=== PATIENT | male | born 1945 | race Caucasian/White ===

== ENCOUNTER 2020-04-27 12:02 | Outpatient (CLI) | payer OTHER, SELFPAY ==
[2020-04-27 12:51] LABS: Alanine Aminotransferase 34 U/L (4-50); Aspartate Amino Transferase 38 U/L (17-59)
== END 2020-04-27 12:03 | disposition home or self-care (01) ==
PROVIDERS: PCP Internal Medicine; Visit Provider Podiatrist Foot & Ankle Surgery
DX: B35.1 Tinea unguium (principal)
CPT/HCPCS: 36415; 84450; 84460

== ENCOUNTER 2020-07-26 09:04 | Outpatient (CLI) | payer OTHER, SELFPAY ==
[2020-07-26 09:34] LABS: Alanine Aminotransferase 23 U/L (4-50); Aspartate Amino Transferase 26 U/L (17-59)
== END 2020-07-26 09:05 | disposition home or self-care (01) ==
PROVIDERS: PCP Internal Medicine; Visit Provider Podiatrist Foot & Ankle Surgery
DX: B35.1 Tinea unguium (principal)
CPT/HCPCS: 36415; 84450; 84460

== ENCOUNTER 2020-10-09 09:23 | Outpatient (CLI) | payer OTHER, SELFPAY ==
--- NOTE | ~2020-10-09 | MR_ITS ---
EXAMINATION: MR lumbar spine wo/w con EXAM DATE: 10/09/2020 11:27 INDICATION: Lumbar radiculopathy. TECHNIQUE: Multi-sequential, multiplanar MR images of the lumbar spine were obtained without contrast . Sagittal T1, T2, T2 fat saturation images. Axial T2 weighted images. Axial T1 weighted sequence. Patient was then injected with 20 mL Multihance intravenous contrast and reimaged. Postcontrast axi al and sagittal T1-weighted fat saturation sequences were obtained. FINDINGS: Interbody and posterior fusion L3-4. There are some solid bone bridging at this level. Ther e is moderate to severe disc disease L4-5 and L5-S1. There is 2 mm retrolisthesis L1 on L2, 2 mm ante rolisthesis L2 on L3, 2 mm retrolisthesis L4 on L5. Endplate degenerative signal change at L4-5 and L 5-S1. There is L1 hemangioma. The conus medullaris terminates at the T12-L1 level and has normal sign al intensity and morphology. Paraspinal soft tissue is unremarkable. There are no areas of abnormal enhancement on the post contrast images. Level by level evaluation: T12-L1: Disc does not extend beyond the endplate margin. Facet arthropathy: Mild to moderate. Neural foraminal stenosis: No stenosis. Central canal stenosis: No stenosis. L1-L2: There is a moderate diffuse disc bulge. Facet arthropathy: Moderate to severe . Ligamentum flavum enlargement. Neural foraminal stenosis: Moderate bilateral. Central canal stenosis: Mild to moderate. L2-L3: There is a moderate diffuse disc bulge. Facet arthropathy: Severe . Ligamentum flavum enlargement. Neural foraminal stenosis: Mild bilateral. Central canal stenosis: Moderate. L3-L4: This level is fused. Facet arthropathy: Fused. Neural foraminal stenosis: Mild bilateral. Central canal stenosis: Posterior decompression. L4-L5: There is a moderate diffuse disc bulge. Facet arthropathy: Moderate to severe. Neural foraminal stenosis: Moderate left, mild to moderate right. Central canal stenosis: Mild to moderate. L5-S1: There is a moderate diffuse disc bulge. Facet arthropathy: Mild to moderate right, mild left. Neural foraminal stenosis: Mild to moderate bilateral. Central canal stenosis: Mild. IMPRESSION: Moderate to severe lumbar spondylosis. Central canal most narrowed at L2-3. No acute find ings. Reviewed, dictated and finalized at location A. IMPRESSION: Moderate to severe lumbar spondylosis. Central canal most narrowed at L2-3. No acute findings.
== END 2020-10-09 09:24 | disposition home or self-care (01) ==
PROVIDERS: PCP Internal Medicine; Visit Provider Nurse Practitioner Family
DX: M54.5 Low back pain (principal); M47.816 Spondylosis without myelopathy or radiculopathy, lumbar region
CPT/HCPCS: 72158; A9577

== ENCOUNTER 2020-12-27 09:46 | Emergency (ER) | payer OTHER, SELFPAY ==
--- NOTE | ~2020-12-27 | XR_ITS ---
XR ankle LT min 3V DATE: 12/27/2020 11:29 INDICATION: Erythema of left ankle TECHNIQUE: 4 views COMPARISON: None FINDINGS: There is mild lateral soft tissue swelling. There is mild plantar and prominent posterior c alcaneal enthesopathy. No fracture or dislocation of the ankle or disruption of the ankle mortise. No periosteal reaction or bone destruction is detected. IMPRESSION: Mild lateral soft tissue swelling. Calcaneal enthesopathy Reviewed, dictated and finalized at location B.
[2020-12-27 09:47] VITALS: BP 144/82; PULSE 77; RESP 16; TEMP 36.3; O2SAT 99
[2020-12-27 10:59] VITALS: BP 129/70; PULSE 64; RESP 16; O2SAT 99
--- NOTE | 2020-12-27 11:43 | ED.SKABFB ---
HPI - Skin/Abscess/Foreign Bdy General Chief complaint: Skin/Abscess/Foreign Body Stated complaint: cellulitis on leg Time Seen by Provider: 12/27/20 11:02 Source: patient Mode of arrival: ambulatory Limitations: no limitations History of Present Illness HPI narrative: This is a 75-year-old male that presents to the emergency department for a rash noted since yesterday. Reports a red rash over the left ankle. Does report about 3 weeks ago he had several tick bites on the ankles. Does not report that the rash is particularly painful or itchy. Denies fever or arthralgia. Related Data Home Medications Medication Instructions Recorded Confirmed blood sugar diagnostic #10 each 03/28/19 12/01/20 fluticasone propionate 50 2 spray NASAL DAILY 03/28/19 12/01/20 mcg/actuation nasal spray,suspension Allergies Allergy/AdvReac Type Severity Reaction Status Date / Time adhesive tape Allergy Mild RASH Verified 07/16/17 08:38 Sulfa (Sulfonamide Allergy Unknown Verified 03/01/15 08:26 Antibiotics) Review of Systems Review of Systems: CONSTITUTIONAL: Denies fever SKIN: Reports rash MUSCULOSKELETAL: Denies joint pain, or myalgia. NEUROLOGIC: Denies numbness All systems reviewed & are unremarkable except as noted in HPI and below PMFSH Past Medical History Medical History (Updated 12/27/20 @ 13:18 by Crystal Shields PA-C) Benign hypertension Mixed hyperlipidemia Family History Family History Other Cerebrovascular accident Diabetes mellitus Family history of alcoholism Family history of arthritis Family history of mental disorder Family history of seizure disorder Hypertension Social History Social History Smoking status: Former smoker Second hand tobacco smoke exposure: No Smoking end date: 03/19/69 Alcohol intake: never Exam Narrative: GENERAL: Well-appearing, well-nourished, and in no acute distress. HEAD: Normocephalic, atraumatic. EYES: EOMI. CHEST: Airway patent HEART: Regular rate EXTREMITIES: Normal range of motion. No edema. Proximal to the left lateral malleoli with circular area of erythema and purpura that is blanching. Normal DP pulses. Normal sensation SKIN: Warm, dry, no rash. NEURO: No focal deficits. Alert and oriented x3. PSYCH: Normal mood and affect Course Vital Signs Vital signs: Vital Signs Temperature 97.3 F L 12/27/20 09:47 Pulse Rate 77 12/27/20 09:47 Respiratory Rate 16 12/27/20 09:47 Blood Pressure 144/82 H 12/27/20 09:47 Pulse Oximetry 99 12/27/20 09:47 Temperature 97.3 F L 12/27/20 09:47 Pulse Rate 64 12/27/20 10:59 Respiratory Rate 16 12/27/20 10:59 Blood Pressure 129/70 12/27/20 10:59 Pulse Oximetry 99 12/27/20 10:59 MDM - Skin/Abscess/Foreign Bdy MDM Narrative Medical decision making narrative: Patient presents to the emergency department for a rash that he noticed yesterday. Does report previous tick bites to the ankles a couple weeks ago. He is afebrile and nontoxic-appearing. CBC is without leukocytosis. Inflammatory markers are not elevated. Rickettsia and Lyme antibiotics were sent. Left ankle x-ray is without acute osseous abnormalities. Shows mild soft tissue swelling. Patient will be started on doxycycline for possible tickborne illness. He is to follow-up with his primary care doctor. He was given warnings to return to the ER Lab Data Attestation: I reviewed the patient's lab results. Result diagrams: 12/27/20 11:46 12/27/20 11:46 Labs: Lab Results 12/27/20 12/27/20 12/27/20 Range/Units 11:46 11:46 11:46 WBC 6.3 (4.5-10.0) K/mm3 RBC 5.18 (4.6-6.20) M/mm3 Hgb 15.6 (14.0-18.0) g/dL Hct 46.2 (42.0-52.0) % MCV 89.2 (80-100) fl MCH 30.1 (26-34) pg MCHC 33.8 (32-36) g/dl RDW 13.7 (11.5-14.5) % Plt Coun
[2020-12-27 12:06] LABS: Basophils Absolute Auto 0.1 K/mm3 (0.0-0.1); Basophils Percent Auto 0.9 % (0.2-1.2); Eosinophils Absolute Auto 0.2 K/mm3 (0-0.3); Eosinophils Percent Auto 3.8 % (0-4.4); Hematocrit 46.2 % (42.0-52.0); Hemoglobin 15.6 g/dL (14.0-18.0); Immature Granulocyte Absolute 0.02 K/mm3 (0.00-0.031); Immature Granulocyte Percent A 0.3 % (0-0.5); Lymphocytes Absolute Auto 2.12 K/mm3 (0.9-3.2); Lymphocytes Percent Auto 33.5 % (18.3-44.2); Mean Corpuscular HGB Conc 33.8 g/dl (32-36); Mean Corpuscular Hemoglobin 30.1 pg (26-34); Mean Corpuscular Volume 89.2 fl (80-100); Mean Platelet Volume 11.4 fl (7.4-10.4); Monocytes Absolute Auto 0.9 K/mm3 (0.1-0.6); Monocytes Percent Auto 13.6 % (2.6-8.5); Neutrophils Percent Auto 47.9 % (45.5-73.1); Platelet Count Result 153 k/mm3 (150-375); Red Blood Count 5.18 M/mm3 (4.6-6.20); Red Cell Distribution Width 13.7 % (11.5-14.5); White Blood Count 6.3 K/mm3 (4.5-10.0)
[2020-12-27 12:16] LABS: INR 0.9
[2020-12-27 12:17] LABS: Partial Thromboplastin Time 26.4 SECONDS (22.3-36.8)
[2020-12-27 12:18] LABS: Anion Gap 10 mmol/L (8-16); Blood Urea Nitrogen 18 mg/dL (9-20); CRP 0.6 mg/dL (<1.0); Calcium 9.4 mg/dL (8.4-10.2); Carbon Dioxide 27 mmol/L (22-30); Chloride 102 mmol/L (98-107); Estimated CRCL calculation 69 ml/min; Estimated Glomerular Filt Rate > 60; Glucose 110 mg/dL (65-110); Potassium 3.9 mmol/L (3.4-5.0); Sodium 139 mmol/L (137-145)
[2020-12-27 12:51] LABS: Erythrocyte Sedimentation Rate 16 mm/hr (0-20)
[2020-12-27 14:09] VITALS: BP 124/75; PULSE 80; RESP 16; O2SAT 100
[2020-12-30 18:54] LABS: Lyme Disease Ab (IgM), Blot Negative (Negative); Lyme Disease Ab(IgG), Blot Negative (Negative)
== END 2020-12-27 14:10 | disposition home or self-care (01) ==
PROVIDERS: Physician Assistant; Emergency Provider Emergency Medicine; PCP Internal Medicine
DX: R21 Rash and other nonspecific skin eruption (principal); I10 Essential (primary) hypertension; E78.2 Mixed hyperlipidemia; Z87.891 Personal history of nicotine dependence; Z79.899 Other long term (current) drug therapy; Z51.81 Encounter for therapeutic drug level monitoring
CPT/HCPCS: 36415; 73610; 80048; 85025; 85610; 85652; 85730; 86140; 86617; 86757; 99283

== ENCOUNTER 2021-09-22 11:55 | Outpatient (CLI) | payer OTHER, SELFPAY ==
--- NOTE | ~2021-09-22 | XR_ITS ---
EXAMINATION: XR chest 2V 09/22/2021 12:20 INDICATION: Cough for one month PROCEDURE: 2 view chest COMPARISON: Comparison to multiple prior studies sequentially, with oldest reviewed study dated 12/06. FINDINGS: The lungs are clear. The cardiomediastinal silhouette is within normal limits. There are no pleural effusions. There is no pneumothorax suspected. IMPRESSION: 1: NO ACUTE CARDIOPULMONARY DISEASE. Reviewed, dictated and finalized at location A.
== END 2021-09-22 11:56 | disposition home or self-care (01) ==
PROVIDERS: PCP Family Medicine; Visit Provider Family Medicine
DX: R05.9 Cough, unspecified (principal)
CPT/HCPCS: 71046

== ENCOUNTER 2021-10-24 10:31 | Outpatient (CLI) | payer OTHER, SELFPAY ==
[2021-10-24 19:25] LABS: Alanine Aminotransferase 32 U/L (6-50); Albumin Level 4.3 g/dL (3.5-5.1); Alkaline Phosphatase 78 U/L (38-126); Anion Gap 7 mmol/L (8-16); Aspartate Amino Transferase 37 U/L (17-59); Bilirubin,Total 0.6 mg/dL (0.2-1.3); Blood Urea Nitrogen 17 mg/dL (9-20); Calcium 9.1 mg/dL (8.4-10.2); Carbon Dioxide 29 mmol/L (22-30); Chloride 100 mmol/L (98-107); Cholesterol 189 mg/dL (0-200); Estimated Glomerular Filt Rate > 60; Glucose 115 mg/dL (65-110); HDL Direct 37 mg/dL; Sodium 136 mmol/L (137-145); Triglycerides 232 mg/dL (<150)
[2021-10-24 19:36] LABS: LDL Cholesterol Direct 95 mg/dL
[2021-10-24 19:53] LABS: Prostate Specific Antigen 2.2 ng/mL (< OR = 4.0)
== END 2021-10-24 10:32 | disposition home or self-care (01) ==
LOC: ANHGOSHLAB 10:32
PROVIDERS: PCP Family Medicine; Visit Provider Family Medicine
DX: I12.9 Hypertensive chronic kidney disease with stage 1 through stage 4 chronic kidney disease, or unspecified chronic kidney disease (principal); E78.2 Mixed hyperlipidemia; R73.03 Prediabetes; Z12.5 Encounter for screening for malignant neoplasm of prostate; N18.9 Chronic kidney disease, unspecified
CPT/HCPCS: 36415; 80053; 80061; 83036; 84153; G0103

== ENCOUNTER 2022-11-02 10:47 | Outpatient (CLI) | payer OTHER, SELFPAY ==
[2022-11-02 11:55] LABS: Alanine Aminotransferase 28 U/L (6-50); Albumin Level 4.6 g/dL (3.5-5.1); Alkaline Phosphatase 82 U/L (38-126); Anion Gap 7 mmol/L (8-16); Aspartate Amino Transferase 34 U/L (17-59); Bilirubin,Total 0.9 mg/dL (0.2-1.3); Blood Urea Nitrogen 25 mg/dL (9-20); Calcium 9.5 mg/dL (8.4-10.2); Carbon Dioxide 31 mmol/L (22-30); Chloride 101 mmol/L (98-107); Cholesterol 190 mg/dL (0-200); Estimated Glomerular Filt Rate > 60; Glucose 113 mg/dL (65-110); HDL Direct 38 mg/dL; Sodium 139 mmol/L (137-145); Triglycerides 243 mg/dL (<150)
[2022-11-02 12:06] LABS: LDL Cholesterol Direct 101 mg/dL
[2022-11-02 12:31] LABS: Prostate Specific Antigen 3.2 ng/mL (< OR = 4.0)
== END 2022-11-02 10:48 | disposition home or self-care (01) ==
PROVIDERS: PCP Family Medicine; Visit Provider Family Medicine
DX: Z13.220 Encounter for screening for lipoid disorders (principal); Z12.5 Encounter for screening for malignant neoplasm of prostate; Z13.228 Encounter for screening for other metabolic disorders; E78.2 Mixed hyperlipidemia
CPT/HCPCS: 36415; 80053; 80061; 84153; G0103

== ENCOUNTER 2023-05-16 02:04 | Day surgery (SDC) | payer MEDICARE, SELFPAY ==
[2023-04-23 11:59] VITALS: BMI 31.2
--- NOTE | 2023-05-14 10:50 | PC.NURSE ---
Patient called regarding upcoming procedure. Reviewed preop instructions, appointment times, and procedure prep.
--- NOTE | 2023-05-15 15:07 | PM.HPGS ---
History of Present Illness History of Present Illness Consent: Risks, benefits, and alternatives have been discussed and questions answered. Patient agrees to proceed with procedure. Chief complaint: Other fecal abnormalities Narrative: Neil Pickett is a 77 year old male referred for colon cancer screening. A recent Cologuard test was positive. He has a history of polyps as well. Review of Systems Review of Systems: All systems reviewed & are unremarkable except as noted in HPI and below PMFSH Past Medical History Medical History Benign hypertension Mixed hyperlipidemia Family History Family History Other Cerebrovascular accident Diabetes mellitus Family history of alcoholism Family history of arthritis Family history of mental disorder Family history of seizure disorder Hypertension Social History Social History Smoking status: Former smoker Second hand tobacco smoke exposure: No Smoking end date: 03/19/69 Alcohol intake: never Substance use: never Substance use type: does not use Lack of Transportation: No Lack of Food: Never True Current Housing: I Have Housing Concerned About Future Housing: No Difficulty Paying Gas/Electric Bills: No Difficulty Paying for Meds: No Currently Unemployed: No Education: Trade/Vocational Certificate Difficulty w/ Childcare or Family Care: No Living arrangements: with family Occupation/Education: retired Gender identity (if verbalized by the patient): Male Spiritual care concerns: No Meds Home Medications and Allergies Home Medications Medication Instructions Recorded Confirmed Type meclizine 25 mg tablet 25 mg PO BID PRN dizziness #30 tabs 03/30/21 04/23/23 Rx blood sugar diagnostic (Contour #50 ea 10/24/21 04/23/23 Rx Next Test Strips) vibegron 75 mg tablet (Gemtesa) 75 mg PO DAILY 04/18/22 04/23/23 History mirabegron 25 mg tablet,extended 25 mg PO DAILY #90 tabs 11/02/22 04/23/23 Rx release 24 hr (Myrbetriq) losartan 100 1 tablet PO DAILY #90 tabs 03/30/23 05/16/23 Rx mg-hydrochlorothiazide 25 mg tablet lovastatin 40 mg tablet 40 mg PO QPM #90 tabs 03/30/23 04/23/23 Rx tamsulosin 0.4 mg capsule 0.4 mg PO QHS #90 caps 03/30/23 04/23/23 Rx aspirin 81 mg capsule 81 mg PO DAILY 04/23/23 04/23/23 History Allergies Allergy/AdvReac Type Severity Reaction Status Date / Time adhesive tape Allergy Mild RASH Verified 05/16/23 10:26 Sulfa (Sulfonamide Allergy Unknown Unknown Verified 05/16/23 10:26 Antibiotics) Exam Resp: Auscultation: clear to auscultation bilaterally Cardio: Rate: regular rate Rhythm: regular rhythm GI: GI Palp: Yes Soft to palpation and No Tenderness to palpation present (GI) Assessment and Plan Assessment and plan (1) Positive colorectal cancer screening using Cologuard test: Code(s): R19.5 - Other fecal abnormalities Status: Acute Assessment and Plan: Colonoscopy with possible biopsy or polypectomy or cautery or injection of substances.
[2023-05-16 10:29] VITALS: BP 147/70; PULSE 63; RESP 16; TEMP 36.4; O2SAT 98
--- NOTE | 2023-05-16 10:30 | WPDANESEPPF ---
Anes - Initial Pre Proc Eval Procedure: Operation Date: 05/16/23 11:30 Proposed Procedures p Colonoscopy - Rg Stone MD Date/Time: 05/16/23 10:31 Surgeon: Rg Stone MD Pre Op Diagnosis: Other fecal abnormalities Patient Data Age: 77 Gender: M Height: 1.83 m Weight: 104.5 kg Allergies Allergy/AdvReac Type Severity Reaction Status Date / Time adhesive tape Allergy Mild RASH Verified 05/16/23 10:26 Sulfa (Sulfonamide Allergy Unknown Unknown Verified 05/16/23 10:26 Antibiotics) Home Medications Medication Instructions Recorded Confirmed Type meclizine 25 mg tablet 25 mg PO BID PRN dizziness #30 tabs 03/30/21 04/23/23 Rx blood sugar diagnostic (Contour #50 ea 10/24/21 04/23/23 Rx Next Test Strips) vibegron 75 mg tablet (Gemtesa) 75 mg PO DAILY 04/18/22 04/23/23 History mirabegron 25 mg tablet,extended 25 mg PO DAILY #90 tabs 11/02/22 04/23/23 Rx release 24 hr (Myrbetriq) losartan 100 1 tablet PO DAILY #90 tabs 03/30/23 05/16/23 Rx mg-hydrochlorothiazide 25 mg tablet lovastatin 40 mg tablet 40 mg PO QPM #90 tabs 03/30/23 04/23/23 Rx tamsulosin 0.4 mg capsule 0.4 mg PO QHS #90 caps 03/30/23 04/23/23 Rx aspirin 81 mg capsule 81 mg PO DAILY 04/23/23 04/23/23 History Patient hx anesthesia problems: none Family hx anesthesia problems: none Results Review: All pre-operative results and documents have been reviewed as part of the pre-operative evaluation. [facility] Past Medical History Medical History Benign hypertension Mixed hyperlipidemia Family History Family History Other Cerebrovascular accident Diabetes mellitus Family history of alcoholism Family history of arthritis Family history of mental disorder Family history of seizure disorder Hypertension Social History Social History Smoking status: Former smoker Second hand tobacco smoke exposure: No Smoking end date: 03/19/69 Alcohol intake: never Substance use: never Substance use type: does not use Lack of Transportation: No Lack of Food: Never True Current Housing: I Have Housing Concerned About Future Housing: No Difficulty Paying Gas/Electric Bills: No Difficulty Paying for Meds: No Currently Unemployed: No Education: Trade/Vocational Certificate Difficulty w/ Childcare or Family Care: No Living arrangements: with family Occupation/Education: retired Gender identity (if verbalized by the patient): Male Spiritual care concerns: No Anes - Eval Final PreProcedure Day of Procedure 05/16/23 10:31 Patient weight: obese Heart: regular rate and rhythm Lungs: clear to auscultation Airway: Mallampati scale class II Neurological: alert and oriented Last oral intake: >/= 8 hours ASA classification: III Emergent: no Anesthetic plan: proceed Anesthesia type and monitoring: general GIVS and standard monitoring Results Review: All pre-operative results and documents have been reviewed as part of the pre-operative evaluation. Informed Consent: The patient's anesthetic plan and its attendant risks and benefits were discussed with the patient/family/POA. Questions were solicited and answers provided to the satisfaction of the patient/family/POA.
[2023-05-16] MEDS: LACTATED RINGERS 1,000 ML 150 ML IV CONT (10:45)
[2023-05-16 10:54] LABS: Glucose Point of Care 118 mg/dl (65-105)
[2023-05-16 11:43] VITALS: BP 97/63; PULSE 56; RESP 16; O2SAT 98
[2023-05-16 11:53] VITALS: BP 119/71; PULSE 58; RESP 20; O2SAT 98
[2023-05-16 12:03] VITALS: BP 121/75; PULSE 57; RESP 20; O2SAT 100
== END 2023-05-16 12:15 | disposition home or self-care (01) ==
PROVIDERS: PCP Family Medicine; Visit Provider Internal Medicine Gastroenterology
PROC: 0DJD8ZZ Inspection of Lower Intestinal Tract, Via Natural or Artificial Opening Endoscopic (ICD-10-PCS; CPT 45378; principal; 2023-05-16 11:30)
DX: K57.30 Diverticulosis of large intestine without perforation or abscess without bleeding (principal); I10 Essential (primary) hypertension; E78.2 Mixed hyperlipidemia; E66.9 Obesity, unspecified; Z68.30 Body mass index [BMI] 30.0-30.9, adult
CPT/HCPCS: 45378; 82948; J2704; J7120

== ENCOUNTER 2023-11-30 08:57 | Outpatient (CLI) | payer MEDICARE, SELFPAY ==
[2023-11-30 15:37] LABS: Basophils Absolute Auto 0.1 K/mm3 (0.0-0.1); Eosinophils Absolute Auto 0.4 K/mm3 (0-0.3); Eosinophils Percent Auto 4.7 % (0-4.4); Hematocrit 48.5 % (42.0-52.0); Hemoglobin 15.8 g/dL (14.0-18.0); Immature Granulocyte Absolute 0.02 K/mm3 (0.00-0.031); Immature Granulocyte Percent A 0.2 % (0-0.5); Lymphocytes Absolute Auto 3.35 K/mm3 (0.9-3.2); Lymphocytes Percent Auto 40.4 % (18.3-44.2); Mean Corpuscular HGB Conc 32.6 g/dl (32-36); Mean Corpuscular Hemoglobin 30.4 pg (26-34); Mean Corpuscular Volume 93.3 fl (80-100); Mean Platelet Volume 11.9 fl (7.4-10.4); Monocytes Absolute Auto 0.8 K/mm3 (0.1-0.6); Monocytes Percent Auto 10.1 % (2.6-8.5); Neutrophils Absolute Auto 3.6 K/mm3 (1.3-6.7); Neutrophils Percent Auto 43.6 % (45.5-73.1); Platelet Count Result 156 k/mm3 (150-375); Red Cell Distribution Width 14.4 % (11.5-14.5); White Blood Count 8.3 K/mm3 (4.5-10.0)
[2023-11-30 15:57] LABS: Alanine Aminotransferase 28 U/L (6-50); Albumin Level 4.3 g/dL (3.5-5.1); Alkaline Phosphatase 73 U/L (38-126); Anion Gap 11 mmol/L (4-12); Aspartate Amino Transferase 49 U/L (17-59); Bilirubin,Total 0.6 mg/dL (0.2-1.3); Blood Urea Nitrogen 22 mg/dL (9-20); Calcium 9.5 mg/dL (8.4-10.2); Carbon Dioxide 30 mmol/L (22-30); Chloride 98 mmol/L (98-107); Cholesterol 163 mg/dL (0-200); Estimated Glomerular Filt Rate > 60; Glucose 110 mg/dL (65-110); HDL Direct 40 mg/dL; Potassium 4.1 mmol/L (3.4-5.0); Sodium 139 mmol/L (137-145); Triglycerides 228 mg/dL (<150)
[2023-11-30 16:08] LABS: LDL Cholesterol Direct 80 mg/dL
[2023-11-30 16:26] LABS: Prostate Specific Antigen 2.8 ng/mL (< OR = 4.0)
== END 2023-11-30 08:58 | disposition home or self-care (01) ==
PROVIDERS: PCP Family Medicine; Visit Provider Family Medicine
DX: E78.2 Mixed hyperlipidemia (principal); Z13.228 Encounter for screening for other metabolic disorders; Z12.5 Encounter for screening for malignant neoplasm of prostate; R53.83 Other fatigue
CPT/HCPCS: 36415; 80053; 80061; 84153; 85025; G0103